=== PATIENT | male | born 1950 | race African-American/Black ===

== ENCOUNTER 2019-03-19 10:12 | Inpatient (IN) ==
[2019-03-19] MEDS ORDERED: PANTOPRAZOLE 40 MG VIAL IV STA (11:01)
[2019-03-19 11:22] LABS: Basophils % 0.3 % (0.0-0.8); Eosinophils # 0.1 10*3/uL (0.0-0.87); Eosinophils % 1.7 % (0.00-10.9); Hematocrit 30.7 VOL% (42.0-52.0); Hemoglobin 9.1 GM/DL (14.0-18.0); Immature Granulocytes % 0.3 %; Immature Granulocytes Absolute 0.01 #; Lymphocytes # 0.7 10*3/uL (1.4-4.0); Lymphocytes % 18.2 % (21.2-54.2); Mean Corpuscular HGB Conc 29.6 GM/DL (32-36); Mean Corpuscular Volume 93.9 FL (87-102); Mean Platelet Volume 10.9 FL (9.6-12.0); Neutrophils % 72.5 % (38.7-73.9); Platelet Count 247 T/CUMM (130-400); Red Blood Count 3.27 MC/CUMM (3.8-5.5); Red Cell Distribution Width 15.3 % (9.3-17.3); White Blood Count 3.6 T/CUMM (4-12)
[2019-03-19 11:28] LABS: PT Patient Result 10.9 SECS; Partial Thromboplastin Time 26.2 SECS (0-40)
[2019-03-19 11:36] LABS: Alanine Aminotransferase 18 U/L (16-61); Albumin 3.4 G/DL (3.4-5.0); Alkaline Phosphatase 23 U/L (45-117); Aspartate Amino Transferase 14 U/L (0-37); Bilirubin,Total < 0.39 MG/DL (0.2-1.0); Blood Urea Nitrogen 39 MG/DL (7-18); Glucose 123 MG/DL (74-106); Osmolality,Calculated 286.5 MOS/KG (273-304); Total Protein 7.2 G/DL (6.4-8.3)
[2019-03-19] MEDS ORDERED: SODIUM CHLORIDE 0.9% 1,000 ML IV STA (12:07)
[2019-03-19] MEDS ORDERED: ONDANSETRON 4 MG/2 ML VIAL IV PRN (12:26)
[2019-03-19] MEDS ORDERED: ACETAMINOPHEN 325 MG TABLET PO PRN (12:26)
[2019-03-19 15:05] LABS: Hematocrit 29.8 VOL% (42.0-52.0); Hemoglobin 8.8 GM/DL (14.0-18.0)
[2019-03-19] MEDS ORDERED: GLUCAGON 1 MG VIAL IM PRN (15:29)
[2019-03-19] MEDS ORDERED: DEXTROSE 50% 25 GM/50 ML VIAL IV PRN (15:29)
[2019-03-19] MEDS: DEXTROSE 5% NACL 0.45% 1,000 ML IV SCH ×2 (15:57→23:49)
[2019-03-19 18:33] LABS: Hematocrit 27.2 VOL% (42.0-52.0); Hemoglobin 8.2 GM/DL (14.0-18.0)
[2019-03-19] MEDS: INSULIN LISPRO 100 UNIT/ML SUBCUT SCH (18:41)
[2019-03-20 00:41] LABS: Hematocrit 28.1 VOL% (42.0-52.0); Hemoglobin 8.5 GM/DL (14.0-18.0)
[2019-03-20] MEDS: INSULIN LISPRO 100 UNIT/ML SUBCUT SCH ×5 (01:04→23:53)
[2019-03-20 01:24] LABS: Albumin 3.3 G/DL (3.4-5.0); Bilirubin,Total 0.4 MG/DL (0.2-1.0); Calcium 8.3 MG/DL (8.5-10.1); Osmolality,Calculated 286.3 MOS/KG (273-304); Total Protein 6.8 G/DL (6.4-8.3)
[2019-03-20 05:46] LABS: Hemoglobin 8.6 GM/DL (14.0-18.0)
[2019-03-20] MEDS: DEXTROSE 5% NACL 0.45% 1,000 ML IV SCH ×3 (08:08→23:53)
[2019-03-20] MEDS: FENOFIBRATE 145 MG TABLET PO SCH (09:00)
[2019-03-20] MEDS: ROSUVASTATIN 20 MG TABLET PO SCH (09:00)
[2019-03-20] MEDS: CLOPIDOGREL 75 MG TABLET PO SCH (09:00)
[2019-03-20] MEDS: PANTOPRAZOLE 40 MG TABLET PO SCH (09:00)
[2019-03-20] MEDS: amLODIPine 5 MG TABLET PO SCH (09:00)
[2019-03-20 12:35] LABS: Hematocrit 28.7 VOL% (42.0-52.0); Hemoglobin 8.5 GM/DL (14.0-18.0)
[2019-03-20 14:41] LABS: % Iron Saturation 11.9 % (18-50); Ferritin 29.7 ng/ml (26-388)
[2019-03-20 15:16] LABS: Folate 10.3 NG/ML (5.4-24.0)
[2019-03-20 18:56] LABS: Hematocrit 29.2 VOL% (42.0-52.0); Hemoglobin 8.6 GM/DL (14.0-18.0)
[2019-03-21 00:40] LABS: Hematocrit 28.1 VOL% (42.0-52.0); Hemoglobin 8.4 GM/DL (14.0-18.0)
[2019-03-21] MEDS: INSULIN LISPRO 100 UNIT/ML SUBCUT SCH ×2 (06:08→13:35)
[2019-03-21 07:07] LABS: Hematocrit 28.5 VOL% (42.0-52.0); Hemoglobin 8.6 GM/DL (14.0-18.0)
[2019-03-21] MEDS ORDERED: LACTATED RINGERS 500 ML IV SCH (08:00)
[2019-03-21] MEDS: amLODIPine 5 MG TABLET PO SCH (09:02)
[2019-03-21] MEDS: FENOFIBRATE 145 MG TABLET PO SCH (09:07)
[2019-03-21] MEDS: PANTOPRAZOLE 40 MG TABLET PO SCH (09:07)
[2019-03-21] MEDS: ROSUVASTATIN 20 MG TABLET PO SCH (09:07)
[2019-03-21] MEDS: CLOPIDOGREL 75 MG TABLET PO SCH (09:07)
[2019-03-21] MEDS ORDERED: LIDOCAINE 2% 5 ML VIAL ONE (10:00)
[2019-03-21] MEDS ORDERED: ETOMIDATE 20 MG/10 ML VIAL IV ONE (10:00)
[2019-03-21] MEDS ORDERED: PROPOFOL 200 MG/20 ML VIAL IV ONE (10:00)
[2019-03-21] MEDS ORDERED: SODIUM CHLORIDE 0.9% 1,000 ML IV SCH (11:10)
[2019-03-21 11:47] VITALS: BP 115/50
[2019-03-21 12:46] LABS: Hematocrit 30.7 VOL% (42.0-52.0); Hemoglobin 9.2 GM/DL (14.0-18.0)
== END 2019-03-21 14:37 | disposition home or self-care (01) | DRG 813 ==
LOC: N.ED 10:12 → SUATTDRO 12:26 → N.EDINP 12:26 → N.5E 14:26
PROVIDERS: ADMIT Internal Medicine; ATTEND Internal Medicine